=== PATIENT | female | born 1940 | race Two or more races ===

== ENCOUNTER 2023-06-03 09:27 | Emergency (ER) | payer OTHER ==
[~2023-06-03] VITALS: Ht 152.4 cm; Wt 54.4 kg
[2023-06-03] MEDS ORDERED: CARBIDOPA25 MG (09:44)
[2023-06-03] MEDS ORDERED: CRESTOR20 MG (09:45)
[2023-06-03] MEDS ORDERED: CALCIUM500 M1 (09:45)
[2023-06-03] MEDS ORDERED: LEVOTHYROXINE25 MCG (09:45)
[2023-06-03] MEDS ORDERED: VITAMIN D310 MCG/1 M (09:45)
[2023-06-03 10:34] LABS: HEMOGLOBIN 14.4 g/dL (12.0-15.00); MEAN CELL VOLUME 95.2 fL (80.00-100.00); MEAN CORPUSCULAR HEMOGLOBIN 33.3 pg (27.00-32.0); PLATELET COUNT 164 K/uL (150-450); RED BLOOD COUNT 4.31 M/uL (4.00-6.00); RED CELL DISTRIBUTION WIDTH 13.3 % (11.5-14.5)
[2023-06-03 11:04] LABS: CALCIUM 9.3 mg/dL (8.5-10.1); CREATININE SERUM 0.88 mg/dL (0.55-1.02); GFR 61.67; POTASSIUM 4.5 mEq/L (3.5-5.1)
== END 2023-06-03 12:55 | disposition home or self-care (01) ==
LOC: ER 09:28
PROVIDERS: General Practice
DX: R53.81 Other malaise (principal); G20.A1 Parkinson's disease without dyskinesia, without mention of fluctuations